=== PATIENT | male | born 1980 | race African-American/Black ===

== ENCOUNTER 2018-07-29 22:24 | Emergency (ER) | payer OTHER, SELFPAY ==
[~2018-07-29] VITALS: Ht 182.9 cm; Wt 100.0 kg
[2018-07-29] MEDS ORDERED: SODIUM CHLORIDE 0.9% 1,000 ML IV ONE (22:51)
[2018-07-29] MEDS ORDERED: ONDANSETRON HCL 4MG/2ML INJ IV STA (22:51)
[2018-07-29 23:54] LABS: BASOPHILS % 0.6 % (0.0-2.0); EOSINOPHILS % 2.3 % (0.0-5.0); HEMATOCRIT. 41.1 % (42.0-52.0); HEMOGLOBIN. 14.1 g/dL (14.0-18.0); MEAN CORPUSCULAR HEMOGLOBIN 32.1 pg (28.0-32.0); MEAN CORPUSCULAR VOLUME 93.4 fL (80.0-94.0); MEAN PLATELET VOLUME 8.2 fl (7.4-10.4); MONOCYTES % 6.8 % (2.0-8.0); NEUTROPHILS % 72.3 % (40.0-76.0); PLATELET 249 x1000/uL (130-400); RED CELL DISTRIBUTION WIDTH 12.8 % (11.6-14.6)
[2018-07-29 23:55] LABS: CHLORIDE 112 mEq/L (98-107)
[2018-07-30] MEDS ORDERED: IOHEXOL-350 100 ML BOTTLE ONE (01:32)
[2018-07-30 03:54] VITALS: BP 108/67
== END 2018-07-30 04:04 | disposition home or self-care (01) ==
LOC: ER 22:24 → CANBEDREQ 07-30 06:00
DX: R55 Syncope and collapse (principal); F17.200 Nicotine dependence, unspecified, uncomplicated
CPT/HCPCS: 36415; 71045; 71275; 74174; 80053; 83880; 84484; 85025; 93005; 96361; 96374; 99284; J2405; J7030; Q9967